=== PATIENT | female | born 1975 | race African-American/Black ===

== ENCOUNTER 2019-06-13 12:18 | Emergency (ER) | payer BC, SELFPAY ==
[2019-06-13] MEDS ORDERED: Ketorolac Tromethamine 30 MG/ML VIAL ONE (12:41)
[2019-06-13] MEDS ORDERED: Acetaminophen 500 MG TAB ONE (12:41)
== END 2019-06-13 13:09 | disposition home or self-care (01) ==
LOC: ERS 12:18
DX: M54.5 Low back pain (principal); M53.3 Sacrococcygeal disorders, not elsewhere classified; F17.210 Nicotine dependence, cigarettes, uncomplicated
CPT/HCPCS: 96372; 99283; J1885